=== PATIENT | male | born 1945 | race Caucasian/White ===

== ENCOUNTER → 2020-04-11 10:43 | Outpatient (BNVA) | payer MEDICARE, OTHER, SELFPAY | PROVIDERS: Family Provider Family Medicine; PCP Family Medicine; Visit Provider Internal Medicine Cardiovascular Disease | DX: E78.2 Mixed hyperlipidemia (principal) | CPT/HCPCS: 80061; 80076 ==

== ENCOUNTER → 2020-06-12 08:59 | Outpatient (BNVA) | payer MEDICARE, OTHER, SELFPAY | PROVIDERS: Family Provider Family Medicine; PCP Family Medicine; Visit Provider Internal Medicine Cardiovascular Disease | DX: E78.2 Mixed hyperlipidemia (principal); I10 Essential (primary) hypertension; I42.9 Cardiomyopathy, unspecified | CPT/HCPCS: 80061; 80076 ==

== ENCOUNTER → 2021-04-11 10:31 | Outpatient (BNVA) | payer MEDICARE, OTHER, SELFPAY | PROVIDERS: Family Provider Family Medicine; PCP Nurse Practitioner; Visit Provider Internal Medicine Cardiovascular Disease | DX: E78.2 Mixed hyperlipidemia (principal); E78.5 Hyperlipidemia, unspecified; R06.02 Shortness of breath | CPT/HCPCS: 80048; 80061; 80076 ==

== ENCOUNTER 2021-09-14 12:54 | Emergency (ER) | payer MEDICARE, OTHER, SELFPAY ==
--- NOTE | 2021-09-14 13:01 | ECG_ITS ---
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 Measurements Intervals [place] Rate: 121 P: GA: QRS: -7 QRSD: 105 T: -51 QT: 325 QTc: 463 Interpretive Statements ATRIAL FIBRILLATION WITH RAPID VENTRICULAR RESPONSE WITH ABERRANT CONDUCTION OR VENTRICULAR PREMATURE COMPLEXES INFERIOR MYOCARDIAL INFARCTION , OF INDETERMINATE AGE [40+ ms Q WAVE AND/OR ST/T ABNORMALITY IN II/aVF] No previous ECG available for comparison Electronically Signed On 09-14-2021 23:26:40 CDT by Suki Arreola M.D. [id number]
--- NOTE | 2021-09-14 13:01 | CTR_ITS ---
PROCEDURE INFORMATION: Exam: CT Head Without Contrast Exam date and time: 09/14/2021 12:56 PM Age: 76 years old Clinical indication: Altered mental status/memory loss and weakness, facial; Additional info: Symptoms of acute stroke TECHNIQUE: Imaging protocol: Computed tomography of the head without contrast. Radiation optimization: All CT scans at this facility use at least one of these dose optimization techniques: automated exposure control; mA and/or kV adjustment per patient size (includes targeted exams where dose is matched to clinical indication); or iterative reconstruction. Other technique: STROKE PROTOCOL was implemented. COMPARISON: No relevant prior studies available. RADIATION DOSE METRICS: Total DLP (mGy-cm): 829.79 FINDINGS: Brain: Normal. No hemorrhage. Unremarkable white matter. No mass effect. Cerebral ventricles: No ventriculomegaly. Paranasal sinuses: Visualized sinuses are unremarkable. No fluid levels. Mastoid air cells: Visualized mastoid air cells are well aerated. Bones/joints: Unremarkable. No acute fracture. Soft tissues: Unremarkable. CT/CT head wo con* [id number] IMPRESSION: No acute intracranial abnormality. ASSESSMENT: ASPECTS ([facility] Stroke Program Early CT Score) is 10.
--- NOTE | 2021-09-14 13:09 | ED_ITS ---
HPI - Neuro Symptoms/Deficit General: Chief Complaint: Neuro Symptoms/Deficit Stated Complaint: STROKE ALERT Time Seen by Provider: 09/14/21 13:00 Source: patient and EMS Mode of arrival: EMS Limitations: no limitations History of Present Illness: 76-year-old male brought in by EMS from [facility] last known well was 1225 he had sudden onset of unresponsiveness for a time he became more responsive but he is completely flaccid on the left side he has left-sided neglect and reiterates that there is nothing wrong with him when asked various questions. NIH score of 16. at the bedside denies any recent trauma states he is not on any anticoagulants. Initial EKG does show atrial fibrillation. Onset (ago): minute(s) Time: 12:54 Last Observed Normal: 12:25 Location: left face, left arm, left leg and ataxia History of same: No Severity: severe Quality: weak and numb Relieving factors: none Exacerbating factors: none Context: sudden onset Associated symptoms: Deny cough, fevers/chills, anorexia, seizures, short of breath, tingling or weakness Treatments Prior to Arrival: none Review of Systems General: Reports: ROS unobtainable due to medical condition PFS ED PFSH: Medical History Arrhythmia Cardiomyopathy Glaucoma Hyperlipidemia Hypertension Vasectomy evaluation Ventricular arrhythmia Surgical History H/O cataract extraction Family History Mother CAD (coronary artery disease) Brother CAD (coronary artery disease) Congenital heart disease Lung disease Denies family history of Diabetes Clotting disorder Dementia Chronic kidney disease (CKD) Suicide Anesthesia complication Bleeding disorder Cancer Stroke Social History Smoking and tobacco status: never smoked Alcohol intake: never NIH stroke score NIHSS: Level Of Consciousness - 1a: 1 Level Of Consciousness Questions - 1b: Both Correct Level Of Consciousness Commands - 1c: Both Correct Best Gaze - 2: Forced Deviation Visual Teresa - 3: Partial Hemianopia Facial Palsy - 4: Partial Paralysis Motor Arm Right - 5: No Drift Motor Arm Left - 5: No Effort Against [place] Motor Leg Right - 6: No Drift Motor Leg Left - 6: No Effort Against [place] Limb Ataxia - 7: Present In Two Limbs Sensory - 8: Severe To Total Loss Best Language - 9: No Aphasia Dysarthia - 10: Normal Extinction And Inattention - 11: 0 Score: Total Score: 16 Physical Exam Const: GENERAL APPEARANCE: comfortable HENMT: COMMON NORMALS: normocephalic, atraumatic and hearing grossly normal bilaterally HEAD & SCALP: normocephalic and atraumatic Eye: OTHER: Forced right gaze with left-sided neglect Neck/C-Spine: COMMON NORMALS: no JVD Resp: COMMON NORMALS: normal respiratory effort, No retractions, No use of accessory muscles and clear to auscultation bilaterally AUSCULTATION: clear to auscultation bilaterally Cardio: COMMON NORMALS: no JVD, regular rate, regular rhythm and No murmurs present (Cardio) RATE: regular rate RHYTHM: regular rhythm GI: COMMON NORMALS: Soft to palpation and No hepatosplenomegaly present AUSCULTATION: Yes normoactive bowel sounds PALPATION: Yes Soft to palpation, No Tenderness to palpation present (GI), No Guarding due to palpation present (GI) and Yes No hepatosplenomegaly present Extremity: COMMON NORMALS: normal to inspection, capillary refill normal, no clubbing, cyanosis or edema, no calf tenderness and no pedal edema Neuro: OTHER: See NIH score Skin: COMMON NORMALS: no rashes or lesions noted GENERAL SKIN EXAM: no rashes or lesions noted Course Vital Signs: Vital signs: Vital Signs Temperature 98.1 F 09/14/21 13:40 Pulse Rate 78 09/14/21 13:40 Respiratory Rate 16 09/14/21 13:40 Blood Pressure 143/72 09/14/21 13:40 Pulse Oximetry 97 09/14/21 13:40 MDM - Neuro Symptoms/Deficit Medical Decision Making Discussed with [facility] on-call neurology they are covering for stroke call today. Patient has an NIH score of 16 with left-sided neglect and forced right deviation of his gaze. He is not on any anticoagulants no recent trauma no recent surgeries per the . Discussed risks and benefits with the she wishes to proceed. Discussed with [facility] on-call neurology they have reviewed the CT noncontrast and suspect embolism in the M1 segment. There is no evidence of bleed. They recommend giving the tPA once patient is consented. has agreed tPA started will transfer emergently via [facility] to [facility] ER to ER. Medical Records I reviewed the patient's medical records. Lab Data I reviewed the patient's lab results. : 09/14/21 13:20 09/14/21 13:[address] 09/14/21 13:01 IMPRESSION: No acute intracranial abnormality. ASSESSMENT: ASPECTS ([facility] Stroke Program Early CT Score) is 10. Laboratory Results WBC 9.8 10^3/uL (4.0-10.0) 09/14/21 13:20 RBC 4.79 10^6/uL (4.1-5.3) 09/14/21 13:20 Hgb 14.8 g/dL (11.7-16.6) 09/14/21 13:20 Hct 44.9 % (42.0-52.0) 09/14/21 13:20 MCV 93.7 fl (80-94) 09/14/21 13:20 MCH 30.9 pg (28.0-34.0) 09/14/21 13:20 MCHC 33.0 g/dL (30.0-36.0) 09/14/21 13:20 RDW 12.9 % (12.1-15.1) 09/14/21 13:20 Plt Count 200 10^3/cmm (130-400) 09/14/21 13:20 MPV 10.6 fL (7.4-10.4) H 09/14/21 13:20 Neut % (Auto) 58.3 % 09/14/21 13:20 Lymph % (Auto) 28.2 % 09/14/21 13:20 [place] % (Auto) 12.1 % 09/14/21 13:20 Eos % (Auto) 0.6 % 09/14/21 13:20 Baso % (Auto) 0.6 % 09/14/21 13:20 Neut # (Auto) 5.71 10^3/uL (1.8-7.7) 09/14/21 13:20 Lymph # (Auto) 2.8 10^3/uL (0.8-4.8) 09/14/21 13:20 [place] # (Auto) 1.2 10^3/uL (0.2-0.9) H 09/14/21 13:20 Eos # (Auto) 0.1 10^3/uL (0.0-0.8) 09/14/21 13:20 Baso # (Auto) 0.1 10^3/uL (0.0-0.1) 09/14/21 13:20 Nucleated RBC % (auto) 0 % 09/14/21 13:20 Nucleated RBCs # 0.0 /100WBC 09/14/21 13:20 PT 13.50 SECONDS (12.1-14.9) 09/14/21 13:20 INR 1.00 (0.8-1.2) 09/14/21 13:20 APTT 30.2 SECONDS (23.9-36.7) 09/14/21 13:20 Sodium 135 mmol/L (136-145) L 09/14/21 13:20 Potassium 4.3 mmol/L (3.5-5.1) 09/14/21 13:20 Chloride 101 mmol/L (98-107) 09/14/21 13:20 Carbon Dioxide 23 mmol/L (22-29) 09/14/21 13:20 Anion Gap 15.3 (5-19) 09/14/21 13:20 BUN 12 mg/dL (8-23) 09/14/21 13:20 Creatinine 0.9 mg/dL (0.7-1.2) 09/14/21 13:20 GFR Calculation Not Reportable 09/14/21 13:20 Glucose 121 mg/dL (65-115) H 09/14/21 13:20 POC Glucose 108 mg/dL (70-110) 09/14/21 13:09 Calculated Osmolality 281 mOsm/kg (285-295) L 09/14/21 13:20 Calcium 8.4 mg/dL (8.5-10.5) L 09/14/21 13:20 Total Bilirubin 1.0 mg/dL (0.15-1.2) 09/14/21 13:20 AST 27 U/L (0-40) 09/14/21 13:20 ALT 24 U/L (0-41) 09/14/21 13:20 Alkaline Phosphatase 63 IU/L (40-130) 09/14/21 13:20 Total Protein 7.2 g/dL (6.6-8.7) 09/14/21 13:20 Albumin 3.8 g/dL (3.5-5.2) 09/14/21 13:20 Globulin 3.4 g/dL (1.3-4.6) 09/14/21 13:20 Urine Color Yellow (Yellow) 09/14/21 13:36 Urine Appearance Clear (CLEAR) 09/14/21 13:36 Urine pH 6.5 (5-7) 09/14/21 13:36 Ur Specific [place] 1.015 (1.005-1.030) 09/14/21 13:36 Urine Protein Neg (Negative) 09/14/21 13:36 Urine Glucose (UA) Norm (Normal) 09/14/21 13:36 Urine Ketones 1+ (Negative) H 09/14/21 13:36 Urine Blood 2+ (Negative) H 09/14/21 13:36 Urine Nitrate Negative (Negative) 09/14/21 13:36 Urine Bilirubin 1+ (Negative) H 09/14/21 13:36 Urine Urobilinogen Norm mg/dL (Negative) 09/14/21 13:36 Ur Leukocyte Esterase Negative (Negative) 09/14/21 13:36 Urine RBC 5-10 /hpf (0-2) H 09/14/21 13:36 Urine WBC 0-4 /hpf (0-5) H 09/14/21 13:36 Ur Squamous Epith Cells 0-4 /hpf (0-5) H 09/14/21 13:36 Amorphous Sediment Not Reportable 09/14/21 13:36 Urine Bacteria Trace /hpf (NONE) 09/14/21 13:36 Urine Mucus 1+ /hpf 09/14/21 13:36 Urine Opiates Screen Negative ng/mL (Negative) 09/14/21 13:36 Ur Barbiturates Screen Negative ng/mL (Negative) 09/14/21 13:36 Ur Phencyclidine Scrn Negative ng/mL (Negative) 09/14/21 13:36 Ur Amphetamines Screen Negative ng/mL (Negative) 09/14/21 13:36 U Benzodiazepines Scrn Negative ng/mL (Negative) 09/14/21 13:36 Urine Cocaine Screen Negative ng/mL (Negative) 09/14/21 13:36 U Marijuana (THC) Screen Negative ng/mL (Negative) 09/14/21 13:36 Critical Care Time Critical Care Time: Critical Care Time: Yes Total Critical Care Time: 60 Attestation: The high probability of a clinically significant, sudden or life threatening deterioration of the patient's neurologic system(s) required my full and direct attention, intervention and personal management. The critical care time is as shown. This time is in addition to time spent performing any reported procedures but includes the following: [x] Data and vital sign review and interpretation [x] Patient assessment, examination and intervention [x] Documentation [x] Medication orders and management Discharge Plan Discharge Patient Disposition: Transfer to ED Clinical Impression: Cerebrovascular accident Condition: Stable Prescriptions: No Action magnesium oxide 400 mg magnesium tablet 400 mg PO BID 0RF dorzolamide (PF) 2 % drops 1 drop ophthalmic (eye) TID 0RF latanoprost 0.005 % drops 1 drop ophthalmic (eye) DAILY 0RF metoprolol succinate 50 mg tablet extended release 24 hr 50 mg PO DAILY Qty: 90 3RF Multi-Daily Tablet 1 tab PO DAILY 0RF pravastatin 40 mg tablet 40 mg PO DAILY 0RF lisinopril 10 mg tablet 10 mg PO DAILY 0RF Referrals: Frances Guillen APN [Primary Care Provider] - Sridhar King Jr, MD [Staff Physician] - Coding Level of Care Code ED Be[employer] for Jeff Fwd Exam Comprehensive
[2021-09-14 13:31] LABS: Basophils # 0.1 10^3/uL (0.0-0.1); Basophils % 0.6 %; Eosinophils # 0.1 10^3/uL (0.0-0.8); Eosinophils % 0.6 %; Hematocrit 44.9 % (42.0-52.0); Hemoglobin 14.8 g/dL (11.7-16.6); Lymphocytes # 2.8 10^3/uL (0.8-4.8); Lymphocytes % 28.2 %; Mean Corpuscular Hemoglobin 30.9 pg (28.0-34.0); Mean Corpuscular Volume 93.7 fl (80-94); Mean Platelet Volume 10.6 fL (7.4-10.4); Monocytes # 1.2 10^3/uL (0.2-0.9); Monocytes % 12.1 %; Neutrophils # 5.71 10^3/uL (1.8-7.7); Neutrophils % 58.3 %; Nucleated Red Blood Cells % 0 %; Platelet Count 200 10^3/cmm (130-400); Red Blood Count 4.79 10^6/uL (4.1-5.3); Red Cell Distribution Width 12.9 % (12.1-15.1); White Blood Count 9.8 10^3/uL (4.0-10.0)
--- NOTE | 2021-09-14 13:38 | PC.NURSE ---
Called [facility] spoke with ER, states this RN can't give report as they have not officially accepted at this time. given number to call back in 10 minutes, .
[2021-09-14 13:40] VITALS: BP 143/72; PULSE 78; RESP 16; TEMP 36.7; O2SAT 97; BMI 27.3
[2021-09-14 13:54] LABS: Partial Thromboplastin Time 30.2 SECONDS (23.9-36.7)
[2021-09-14 13:58] LABS: Alanine Aminotransferase 24 U/L (0-41); Albumin Level 3.8 g/dL (3.5-5.2); Alkaline Phosphatase 63 IU/L (40-130); Anion Gap 15.3 (5-19); Aspartate Amino Transferase 27 U/L (0-40); Blood Urea Nitrogen 12 mg/dL (8-23); Calcium 8.4 mg/dL (8.5-10.5); Carbon Dioxide 23 mmol/L (22-29); Chloride 101 mmol/L (98-107); Creatinine Clr Calc Pharmacy 72.7889; Globulin 3.4 g/dL (1.3-4.6); Glucose 121 mg/dL (65-115); Osmolality Calculated 281 mOsm/kg (285-295); Potassium 4.3 mmol/L (3.5-5.1); Sodium 135 mmol/L (136-145); Total Protein 7.2 g/dL (6.6-8.7)
--- NOTE | 2021-09-14 14:00 | PC.NURSE ---
Patient's Yina states she needs to speak with son or daughter in law before okaying the flight to [facility], due to concerns for transportation for her. Patient's states if we speak with them before she does, and they give consent we can then fly patient to [facility].
[2021-09-14] MEDS: dilTIAZem 5 mg/mL SDV 5 mL 10 MG IVP (14:17)
--- NOTE | 2021-09-14 14:27 | PC.NURSE ---
Spoke with she has left the building, after discussion with Dr. Anne about the severity of the situation, Yina states she wants to speak with a family member about a ride before allowing him to fly to [place]. She is still okay with verbal consent from family if we are able to reach them before she is. [employer] crew is in ER, spoke with [facility] and they stated it was okay to fly. 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
[2021-09-14 14:50] LABS: Add Urine Microscopic? YES; Amphetamines Screen Urine Negative (Negative); Bacteria Urine TRACE /hpf; Barbiturates Screen Urine Negative (Negative); Benzodiazepines Screen Urine Negative (Negative); Bilirubin Urine 1+ (Negative); Blood Urine 2+ (Negative); Cocaine Screen Urine Negative (Negative); Glucose Urine UA Norm (Normal); Ketones Urine 1+ (Negative); Leukocyte Esterase Urine Negative (Negative); Nitrate Urine Negative (Negative); Opiate Screen Urine Negative (Negative); PCP Screen Urine Negative (Negative); Protein Urine Neg (Negative); Specific Gravity, Urine 1.015 (1.005-1.030); Squamous Epithelial Cell Urine 0-4 /hpf (0-5); THC Screen Urine Negative (Negative); Urine Appearance Clear (CLEAR); Urine Color Yellow (Yellow); Urobilinogen Urine Norm (Negative); WBC Urine 0-4 /hpf (0-5); pH Urine 6.5 (5-7)
[2021-09-14 14:51] LABS: Mucus Urine 1+ /hpf
--- NOTE | 2021-09-14 15:58 | PC.NURSE ---
See scanned in documentation.
[2021-09-15 08:25] LABS: Glucose Point of Care 108 mg/dL (70-110)
== END 2021-09-14 15:00 ==
PROVIDERS: Emergency Provider Family Medicine; PCP Nurse Practitioner
DX: I63.9 Cerebral infarction, unspecified (principal); G81.91 Hemiplegia, unspecified affecting right dominant side; R29.716 NIHSS score 16
CPT/HCPCS: 36416; 70450; 80053; 80306; 81001; 82962; 85025; 85610; 85730; 93005; 96374; 96375; 99285; J2997; J3490

== ENCOUNTER → 2021-12-18 14:58 | Outpatient (BNVA) | payer MEDICARE, OTHER, SELFPAY | PROVIDERS: PCP Nurse Practitioner Family; Visit Provider Internal Medicine Cardiovascular Disease | DX: I48.91 Unspecified atrial fibrillation (principal); I69.354 Hemiplegia and hemiparesis following cerebral infarction affecting left non-dominant side; I49.9 Cardiac arrhythmia, unspecified; I10 Essential (primary) hypertension; E78.5 Hyperlipidemia, unspecified | CPT/HCPCS: 99213; 99214 ==

== ENCOUNTER → 2022-01-02 10:51 | Outpatient (BNVA) | payer MEDICARE, OTHER, SELFPAY | PROVIDERS: PCP Nurse Practitioner Family; Referring Provider Nurse Practitioner Family; Visit Provider Nurse Practitioner | DX: I69.391 Dysphagia following cerebral infarction (principal); I48.91 Unspecified atrial fibrillation; G47.30 Sleep apnea, unspecified; Z79.01 Long term (current) use of anticoagulants | CPT/HCPCS: 99204 ==

== ENCOUNTER 2022-01-03 22:40 | Inpatient (IN) | payer MEDICARE, OTHER, SELFPAY ==
--- NOTE | 2022-01-03 22:44 | ED_ITS ---
HPI - SOB/Dyspnea General: Chief Complaint: Arrhythmia/Palpitations Stated Complaint: SOB Time Seen by Provider: 01/03/22 22:43 Limitations: physical limitation (Prior stroke) and other (Acuity of condition) History of Present Illness: HPI Narrative: Mr. Dasilva is a 76-year-old gentleman with significant past medical history of cardiomyopathy, hypertension, hyperlipidemia, atrial fibrillation, and recent hospitalization prolonged for stroke, chronic anticoagulation with Eliquis who presents to the emergency department due to A. fib with RVR and hypotension. Per EMS report patient had onset of chest pain and shortness of breath at rest and EMS was activated. They found patient be hypotensive into the 80s with heart rates variable 160-180. They attempted adenosine 6 mg and then 12 mg without improvement. Upon arrival patient is moderately ill-appearing and similar vitally. Onset (ago): minute(s) Timing: constant Severity: severe Known history of: congestive heart failure and other Review of Systems General: Reports: ROS unobtainable due to medical condition PFSH ED PFSH: Medical History Afib Arrhythmia Cardiomyopathy CVA (cerebral vascular accident) Glaucoma Hyperlipidemia Hypertension Vasectomy evaluation Ventricular arrhythmia Surgical History H/O cataract extraction Family History Mother CAD (coronary artery disease) Brother CAD (coronary artery disease) Congenital heart disease Lung disease Denies family history of Diabetes Clotting disorder Dementia Chronic kidney disease (CKD) Suicide Anesthesia complication Bleeding disorder Cancer Stroke Social History Smoking and tobacco status: never smoked Alcohol intake: never Physical Exam Const: COMMON NORMALS: alert GENERAL APPEARANCE: ill appearing HENMT: COMMON NORMALS: normocephalic and atraumatic HEAD & SCALP: normocephalic and atraumatic THROAT: posterior oropharynx normal Eye: COMMON NORMALS: conjunctivae normal CONJUNCTIVA: Yes conjunctivae normal SCLERA: sclerae normal Neck/C-Spine: COMMON NORMALS: supple GENERAL: Yes trachea midline Resp: COMMON NORMALS: clear to auscultation bilaterally EFFORT & INSPECTION: Yes tachypneic AUSCULTATION: clear to auscultation bilaterally Cardio: RATE: tachycardic RHYTHM: abnormal rhythm irregularly irregular OTHER: Cool extremities with delayed capillary refill GI: COMMON NORMALS: Soft to palpation PALPATION: Yes Soft to palpation and No Tenderness to palpation present (GI) Extremity: GENERAL: Yes normal exam except as noted and No edema Neuro: SENSORIUM/ORIENTATION: Yes alert and No Orientation impaired OTHER: Baseline neurologic deficits including weakness, mentation surprisingly preserved Procedures Arterial Line Time Out Performed: Yes Size (Gauge): 20 Technique Used: guide wire technique Post-Procedure: line sutured into place and dry sterile dressing placed Patient Tolerated Procedure: well Complications: none Site: right and radial Course ED course: - Patient was seen and evaluated by me at bedside - Patient placed on cardiac monitors, IV access obtained - Initial evaluation notable for exam as above. Patient initially tachycardic to 170?180 with a regular rhythm, EKG confirms atrial fibrillation with rapid ventricular response. Patient blood pressure initially obtained and borderline 90-95 systolic. Given blood pressure and patient adequate mentation I elected to attempt medications for better rate control to improve cardiac output. Cardizem ordered with delayed response however some improvement in heart rate though not optimal control with return to heart rates in the 140?160 range. Subsequently I ordered esmolol with bolus which improved heart rate further however patient became increasingly hypotensive despite fluid bolus administration. At that point I switched to amiodarone with bolus over 10 minutes followed by drip and discontinued esmolol. Phenylephrine ordered for blood pressure support. - [id number] echocardiogram ejection fraction appears significantly reduced, estimated 10 to 20% EF. Unable to visualize IVC due to bowel gas. - Labs and xrays personally interpreted by me - Labs notable for no leukocytosis, hemoglobin normal. Metabolic panel with evidence of JW and metabolic stress. Transaminitis which may be secondary to hypoperfusion of liver. BNP is markedly elevated also giving the possibility of a passive congestive hepatopathy to explain transaminitis. Initial troponin elevated with no recent for comparison. - Urinalysis concerning for urinary tract infection at which point antibiotics ordered. I believe that the patient has multiple etiologies of severe shock including sepsis and cardiogenic. Patient received greater than 30 cc/kg IV fluids accounting for EMS administered 1 L. - Imaging notable for chest x-ray with low lung volumes and mild cardiomegaly. No pneumothorax or lobar consolidation per my interpretation. Given patient's c urrent clinical status I do not feel that he is stable enough for additional advanced imaging. - Given variability of cuff pressure measurements I placed an arterial line after consent obtained from - Upon serial reexamination after treatment the patient was mildly improved/stabilized the patient remains critically ill - Discussed case with cardiology who recommended digoxin for rate control. - Based on patient history, evaluation, and testing as interpreted the most likely cause of the patient's condition is acute decompensation of heart failure, likely cardiogenic shock, atrial fibrillation with rapid ventricular response. - The results of ED evaluation were discussed with the patient including plan for admission due to requirement for level of care not available if discharged to prevent significant worsening/deterioration. - Admitting service was contacted and Dr Cage with the hospitalist service agreed to admit the patient - Patient was admitted in critical condition Note: Click bubbles or prepopulated tran in note writing are used for assistance with data collection and billing and are inherently more limited than narrative and other text portions of this note. Please use narrative for additional clinical history and defer to narrative/free test for any case of contradictory information. If information appears in only free text or click bubble it should be considered present or absent as reported. Please contact note marine underwriter for clarifications of clinical information or contradictory information. MDM is a brief summary, contradictory or erroneous seeming information should be clarified and full note should be reviewed. Vital Signs: Vital signs: Vital Signs Temperature 97.0 F L 01/03/22 22:48 Pulse Rate 114 H 01/03/22 23:33 Respiratory Rate 22 H 01/03/22 23:33 Blood Pressure 72/60 01/03/22 23:33 Pulse Oximetry 97 01/03/22 23:33 Oxygen Delivery Me thod 01/03/22 23:33 Oxygen Flow Rate 2 01/03/22 23:33 MDM - SOB/Dyspnea Medical Decision Making 76-year-old gentleman with complex past medical history including recent stroke, cardiomyopathy, atrial fibrillation presenting with atrial fibrillation with RVR. Patient with borderline blood pressure and attempts at rate control unfortunately were challenging complicated by further hypotension. Patient initiated on peripheral vasopressor. Patient appears to have cardiogenic shock and subsequently, upon results of urinalysis, also a component of septic shock secondary to urosepsis. Admitted to ICU in critical condition. Medical Records I reviewed the patient's medical records. Lab Data I reviewed the patient's lab results. : 01/03/22 22:57 01/03/22 22:57 Labs/Radiology: Radiology Impressions Chest X-Ray 01/03/22 22:52 IMPRESSION: 1. Low lung volumes and mild bronchovascular crowding. 2. Mild cardiomegaly on portable view. Laboratory Results WBC 8.3 10^3/uL (4.0-10.0) 01/03/22 22:57 RBC 5.02 10^6/uL (4.1-5.3) 01/03/22 22:57 Hgb 14.9 g/dL (11.7-16.6) 01/03/22 22:57 Hct 45.2 % (42.0-52.0) 01/03/22 22:57 MCV 90.0 fl (80-94) 01/03/22 22:57 MCH 29.7 pg (28.0-34.0) 01/03/22 22:57 MCHC 33.0 g/dL (30.0-36.0) 01/03/22 22:57 RDW 15.8 % (12.1-15.1) H 01/03/22 22:57 Plt Count 150 10^3/cmm (130-400) 01/03/22 22:57 MPV 13.3 fL (7.4-10.4) H 01/03/22 22:57 Neut % (Auto) 79.7 % 01/03/22 22:57 Lymph % (Auto) 13.7 % 01/03/22 22:57 [place] % (Auto) 6.1 % 01/03/22 22:57 Eos % (Auto) 0.0 % 01/03/22 22:57 Baso % (Auto) 0.1 % 01/03/22 22:57 Neut # (Auto) 6.63 10^3/uL (1.8-7.7) 01/03/22 22:57 Lymph # (Auto) 1.1 10^3/uL (0.8-4.8) 01/03/22 22:57 [place] # (Auto) 0.5 10^3/uL (0.2-0.9) 01/03/22 22:57 Eos # (Auto) 0.0 10^3/uL (0.0-0.8) 01/03/22 22:57 Baso # (Auto) 0.0 10^3/uL (0.0-0.1) 01/03/22 22:57 Nucleated RBC % (auto) 0.4 % 01/03/22 22:57 Nucleated RBCs # 0.0 /100WBC 01/03/22 22:57 Specimen Type Arterial 01/04/22 01:45 Sample Site Radial, left 01/04/22 01:45 ABG pH 7.35 (7.35-7.45) 01/04/22 01:45 ABG pCO2 15.0 mmHg (35-45) L* 01/04/22 01:45 ABG pO2 116.0 mmHg (80.0-100.0) H 01/04/22 01:45 ABG HCO3 8.2 mmol/L (22-26) L 01/04/22 01:45 ABG Base Excess -14.2 mmol/L (-2.0-2.0) L 01/04/22 01:45 Yuriy Test Pos 01/04/22 01:45 Hematocrit 47.2 % (42-52) 01/04/22 01:45 O2 Delivery Device Nc 01/04/22 01:45 O2 Liters/Min 4.0 % 01/04/22 01:45 Estimator Printing Plate Making ID [place] 01/04/22 01:45 Sodium 136 mmol/L (136-145) 01/03/22 22:57 Potassium 4.9 mmol/L (3.5-5.1) 01/03/22 22:57 Chloride 100 mmol/L (98-107) 01/03/22 22:57 Carbon Dioxide 18 mmol/L (22-29) L 01/03/22 22:57 Anion Gap 22.9 (5-19) H 01/03/22 22:57 BUN 55 mg/dL (8-23) H 01/03/22 22:57 Creatinine 1.6 mg/dL (0.7-1.2) H 01/03/22 22:57 GFR Calculation Not Reportable 01/03/22 22:57 Glucose 115 mg/dL (65-115) 01/03/22 22:57 Calculated Osmolality 298 mOsm/kg (285-295) H 01/03/22 22:57 Lactic Acid 3.6 mmol/L (0.5-2.2) H 01/03/22 22:57 Calcium 9.3 mg/dL (8.5-10.5) 01/03/22 22:57 Magnesium 2.2 mg/dL (1.7-2.3) 01/03/22 22:57 Total Bilirubin 1.4 mg/dL (0.15-1.2) H 01/03/22 22:57 AST 112 U/L (0-40) H 01/03/22 22:57 ALT 124 U/L (0-41) H 01/03/22 22:57 Alkaline Phosphatase 150 IU/L (40-130) H 01/03/22 22:57 Troponin T Baseline 183 ng/L (0-15) H* 01/03/22 22:57 Troponin T 120 Minute 204.0 ng/L (0-15) H 01/04/22 01:13 Delta Troponin T 21.0 ABS# (0-10) H* 01/04/22 01:13 NT-Pro-B Natriuret Pep 70201 pg/mL (0-450) H 01/03/22 22:57 Total Protein 5.7 g/dL (6.6-8.7) L 01/03/22 22:57 Albumin 3.3 g/dL (3.5-5.2) L 01/03/22 22:57 Globulin 2.4 g/dL (1.3-4.6) 01/03/22 22:57 TSH 3.95 uIU/mL (0.27-4.20) 01/03/22 22:57 Urine Color Latisha (Yellow) 01/04/22 01:22 Urine Appearance Cloudy (CLEAR) 01/04/22 01:22 Urine pH 6 (5-7) 01/04/22 01:22 Ur Specific [place] 1.030 (1.005-1.030) 01/04/22 01:22 Urine Protein Trace (Negative) 01/04/22 01:22 Urine Glucose (UA) Norm (Normal) 01/04/22 01:22 Urine Ketones Negative (Negative) 01/04/22 01:22 Urine Blood Trace (Negative) H 01/04/22 01:22 Urine Nitrate Negative (Negative) 01/04/22 01:22 Urine Bilirubin Neg (Negative) 01/04/22 01:22 Urine Urobilinogen 1 mg/dL (Negative) H 01/04/22 01:22 Ur Leukocyte Esterase 2+ (Negative) H 01/04/22 01:22 Urine RBC 0-4 /hpf (0-2) H 01/04/22 01:22 Urine WBC >100 /hpf (0-5) H 01/04/22 01:22 Ur Squamous Epith Cells 0-4 /hpf (0-5) H 01/04/22 01:22 Amorphous Sediment Not Reportable 01/04/22 01:22 Urine Bacteria Trace /hpf (NONE) 01/04/22 01:22 Critical Care Time Critical Care Time: Critical Care Time: Yes Total Critical Care Time: 140 Attestation: Due to a high probability of clinically significant, possibly life threatening deterioration, the patient required my highest level of attention and preparedness to intervene emergently and I personally spent this critical care time directly and personally managing the patient. This critical care time included obtaining a history; examining the patient; pulse oximetry; ordering and review of laboratory and imaging studies; arranging urgent treatment with development of a management plan; evaluation of patient's response to treatment; frequent reassessment; and, discussions with other providers as applicable. It was exclusive of separately billable procedures. Primary system involved is cardiovascular. Discharge Plan Discharge Patient Disposition: Admitted As Inpatient Admit Provider: Mark Cage Clinical Impression: Cardiogenic shock, Atrial fibrillation with rapid ventricular response, JW (acute kidney injury), Acute UTI, Hx of cardiomyopathy, Severe sepsis Condition: Stable Coding Level of Care Code ED Tanker Driver for g Fwd Exam Comprehensive
[2022-01-03 22:45] VITALS: BMI 20.3
[2022-01-03 22:48] VITALS: PULSE 181; RESP 22; TEMP 36.1; O2SAT 97
--- NOTE | 2022-01-03 22:49 | ECG_ITS ---
[facility] Test Date: 2022-01-03 Pat Name: Nayan Dasilva Department: Room: Gender: Male Annual Campaign Manager: : 1945 Requested By: Amilcar Mcintyre Order Number: [id number] Salas MD: Suki Arreola M.D. Measurements Intervals [place] Rate: 170 P: MT: QRS: 41 QRSD: 113 T: 93 QT: 255 QTc: 429 Interpretive Statements ATRIAL FIBRILLATION WITH RAPID VENTRICULAR RESPONSE WITH ABERRANT CONDUCTION OR VENTRICULAR PREMATURE COMPLEXES SEPTAL MYOCARDIAL INFARCTION , PROBABLY OLD [40+ ms Q WAVE IN V1/V2] ST DEVIATION AND MODERATE T-WAVE ABNORMALITY, CONSIDER ANTEROLATERAL ISCHEMIA [-0.1+ mV T-WAVE IN V3-V6] CRITICAL TEST RESULT Compared to ECG 09/14/2021 14:08:15 T-wave abnormality now present Possible ischemia now present Myocardial infarct finding still present Electronically Signed On 01-04-2022 18:04:22 CDT by Suki Arreola M.D. [id number]
--- NOTE | 2022-01-03 22:52 | XRR_ITS ---
PROCEDURE INFORMATION: Exam: XR Chest Exam date and time: 01/03/2022 11:09 PM Age: 76 years old Clinical indication: Shortness of breath; Patient HX: SOB. Tachycardic and hypotensive on monitor. History of afib. TECHNIQUE: Imaging protocol: Radiologic exam of the chest. Views: 1 view. COMPARISON: No relevant prior studies available. FINDINGS: Lungs: Low lung volume and bronchovascular crowding. Suggestion of slight increased pulmonary vascularity. No consolidation. Pleural spaces: The costophrenic angles are slightly obscured. Cannot exclude trace pleural effusions. No large pleural effusion. No pneumothorax. Heart/Mediastinum: Mild cardiomegaly. Bones/joints: Unremarkable. XR/XR chest 1V portable [id number] IMPRESSION: 1. Low lung volumes and mild bronchovascular crowding. 2. Mild cardiomegaly on portable view.
[2022-01-03 22:56] VITALS: BP 90/58
[2022-01-03] MEDS: dilTIAZem 5 mg/mL SDV 5 mL 20 MG IVP (22:58)
[2022-01-03 23:06] VITALS: BP 91/69; PULSE 141; RESP 23; O2SAT 95
[2022-01-03 23:08] LABS: Basophils % 0.1 %; Hematocrit 45.2 % (42.0-52.0); Hemoglobin 14.9 g/dL (11.7-16.6); Lymphocytes # 1.1 10^3/uL (0.8-4.8); Lymphocytes % 13.7 %; Mean Corpuscular Hemoglobin 29.7 pg (28.0-34.0); Monocytes # 0.5 10^3/uL (0.2-0.9); Monocytes % 6.1 %; Neutrophils # 6.63 10^3/uL (1.8-7.7); Neutrophils % 79.7 %; Nucleated Red Blood Cells % 0.4 %; Platelet Count 150 10^3/cmm (130-400); Red Blood Count 5.02 10^6/uL (4.1-5.3); Red Cell Distribution Width 15.8 % (12.1-15.1); White Blood Count 8.3 10^3/uL (4.0-10.0)
[2022-01-03 23:10] VITALS: BP 90/58; PULSE 130; RESP 21; O2SAT 95
[2022-01-03 23:16] LABS: Mean Platelet Volume 13.3 fL (7.4-10.4)
[2022-01-03 23:33] VITALS: BP 72/60; PULSE 114; RESP 22; O2SAT 97
[2022-01-03 23:40] LABS: Alanine Aminotransferase 124 U/L (0-41); Albumin Level 3.3 g/dL (3.5-5.2); Alkaline Phosphatase 150 IU/L (40-130); Anion Gap 22.9 (5-19); Aspartate Amino Transferase 112 U/L (0-40); Blood Urea Nitrogen 55 mg/dL (8-23); Calcium 9.3 mg/dL (8.5-10.5); Carbon Dioxide 18 mmol/L (22-29); Chloride 100 mmol/L (98-107); Globulin 2.4 g/dL (1.3-4.6); Glucose 115 mg/dL (65-115); Magnesium 2.2 mg/dL (1.7-2.3); NT Pro B Type Natriuretic Pept 33308 pg/mL (0-450); Osmolality Calculated 298 mOsm/kg (285-295); Potassium 4.9 mmol/L (3.5-5.1); Sodium 136 mmol/L (136-145); Thyroid Stimulating Hormone 3.95 uIU/mL (0.27-4.20); Total Bilirubin 1.4 mg/dL (0.15-1.2); Total Protein 5.7 g/dL (6.6-8.7)
[2022-01-03 23:45] LABS: Troponin(5th) Baseline 183 ng/L (0-15)
[2022-01-03] MEDS: esmolol drip 2,500 MG/250 ML PREMIX 23.1 MG (23:45)
[2022-01-04] VITALS (51 sets, daily range): BP systolic 68–127; BP diastolic 32–80; PULSE 92–129; RESP 12–24; TEMP 35.6–36.6; O2SAT 78–100
[2022-01-04] MEDS: phenylephrine inj 25 MG in sodium chloride 0.9% 250 ML 24.24 MG IV (00:02)
[2022-01-04 00:38] LABS: Lactic Sepsis W/Reflex 3.6 mmol/L (0.5-2.2)
--- NOTE | 2022-01-04 00:53 | ECG_ITS ---
[facility] Test Date: 2022-01-03 Pat Name: Nayan Dasilva Department: Room: Gender: Male Eligibility Worker: : 1945 Requested By: Amilcar Mcintyre Order Number: [id number] Salas MD: Suki Arreola M.D. Measurements Intervals [place] Rate: 100 P: [place]: QRS: 51 QRSD: 116 T: 212 QT: 367 QTc: 474 Interpretive Statements ATRIAL FIBRILLATION WITH RAPID VENTRICULAR RESPONSE WITH ABERRANT CONDUCTION OR VENTRICULAR PREMATURE COMPLEXES SEPTAL MYOCARDIAL INFARCTION , PROBABLY OLD [40+ ms Q WAVE IN V1/V2] MODERATE T-WAVE ABNORMALITY, CONSIDER ANTEROLATERAL ISCHEMIA [-0.1+ mV T-WAVE IN V3-V6] Compared to ECG 01/03/2022 22:49:50 No significant changes Electronically Signed On 01-04-2022 18:30:33 CDT by Suki Arreola M.D. [id number]
[2022-01-04] MEDS: FUROsemide 10 mg/mL SDV 4mL 40 MG IVP (00:59)
--- NOTE | 2022-01-04 01:22 | ECG_ITS ---
[facility] Test Date: 2022-01-04 Pat Name: Nayan Dasilva Department: Room: ICU04 Gender: Male Digital Media Specialist: : 1945 Requested By: Mark Cage Order Number: [id number] Salas MD: Suki Arreola M.D. Measurements Intervals [place] Rate: 118 P: -86 UT: 101 QRS: 29 QRSD: 109 T: -88 QT: 337 QTc: 473 Interpretive Statements JUNCTIONAL TACHYCARDIA WITH FREQUENT VENTRICULAR PREMATURE COMPLEXES SEPTAL MYOCARDIAL INFARCTION , PROBABLY OLD [40+ ms Q WAVE IN V1/V2] ST DEVIATION AND MODERATE T-WAVE ABNORMALITY, CONSIDER ANTEROLATERAL ISCHEMIA [-0.1+ mV T-WAVE IN V3-V6] Compared to ECG 01/03/2022 23:21:10 Junctional tachycardia now present Atrial fibrillation no longer present Aberrant conduction of supraventricular beat(s) no longer present Myocardial infarct finding still present T-wave abnormality still present Possible ischemia still present Electronically Signed On 01-04-2022 18:31:27 CDT by Suki Arreola M.D. [id number]
[2022-01-04] MEDS: digoxin 250 mcg/ml INJ 2 mL 500 MCG IVP (01:25)
[2022-01-04 01:37] LABS: Bilirubin Urine Neg (Negative); Blood Urine Trace (Negative); Glucose Urine UA Norm (Normal); Ketones Urine Negative (Negative); Nitrate Urine Negative (Negative); Protein Urine Trace (Negative); Urine Appearance Cloudy (CLEAR); Urine Color Amber (Yellow); pH Urine 6 (5-7)
[2022-01-04 01:38] LABS: Add Urine Culture? Yes; Add Urine Microscopic? YES; Bacteria Urine TRACE /hpf; Leukocyte Esterase Urine 2+ (Negative); RBC Urine 0-4 /hpf (0-2); Squamous Epithelial Cell Urine 0-4 /hpf (0-5); Urobilinogen Urine 1 mg/dL (Negative); WBC Urine >100 /hpf (0-5)
[2022-01-04] MEDS: cefepime 2,000 MG in sodium chloride 0.9% (plus) 50 ML 100 MG IV (01:46)
[2022-01-04 01:56] LABS: ABG PH Result 7.35 (7.35-7.45); Arterial Blood Gas Hematocrit 47.2 % (42-52); Base Excess ABG -14.2 mmol/L (-2.0-2.0); Blood Gas Allen Test Pos; Blood Gas Operator Identificat WALCI; Blood Gas Sample Site Radial, left; Blood Gas Sample Type Arterial; HCO3 ABG 8.2 mmol/L (22-26); Oxygen Device NC
--- NOTE | 2022-01-04 02:00 | PC.NURSE ---
Dr. Farley updated on pressures and meds that were given, order to hold dobutamine at this time.
--- NOTE | 2022-01-04 02:02 | PC.NURSE ---
Dr. Farley at bedside speaking with family about goals of care. 2 hour trop and delta results reported to Dr. Farley at bedside.
[2022-01-04] MEDS: vancomycin 1,500 MG/300 ML PIGGYBACK 200 MG IV (02:05)
[2022-01-04 02:14] LABS: Reflex Lactate Order REFLEX LACTIC ORDERD
--- NOTE | 2022-01-04 02:20 | USR_ITS ---
PROCEDURE INFORMATION: Exam: US Duplex Lower Extremity Veins, Bilateral Exam date and time: 01/04/2022 3:26 AM Age: 76 years old Clinical indication: Abnormal findings; Abnormal lab test; Elevated d-dimer; Additional info: Dvt TECHNIQUE: Imaging protocol: Real-time Duplex ultrasound of the bilateral extremities with 2-D greer scale, color Doppler flow and spectral waveform analysis with image documentation. Complete exam focused on the bilateral lower extremity veins. COMPARISON: No relevant prior studies available. FINDINGS: Right deep veins: The common femoral, femoral, popliteal and visualized calf/posterior tibial veins are patent without thrombus. Normal Doppler waveforms. Normal compressibility and/or augmentation response. Right superficial veins: Saphenofemoral junction is patent without thrombus. Left deep veins: The common femoral, femoral, popliteal and visualized calf/posterior tibial veins are patent without thrombus. Normal Doppler waveforms. Normal compressibility and/or augmentation response. Left superficial veins: Saphenofemoral junction is patent without thrombus. Soft tissues: Unremarkable. US/CV venous duplex [facility] [id number] IMPRESSION: No evidence of deep vein thrombosis.
--- NOTE | 2022-01-04 02:20 | USCV_ITS ---
Nayan Dasilva Age: 76 Gender: M : 1945 Exam Date: 01/04/2022 10:03 Ordering Phys: Mark Cage MD Technologist: Raya Go Exam Location: [facility] Indication: sob, cardiogenic shock BP: 103 / 54 HR: 97 Rhythm: Sinus Technical Quality: Adequate MEASUREMENTS (Male / Female) Normal Values 2D ECHO LV Diastolic Diameter PLAX 6.4 cm 4.2 - 5.9 / 3.9 - 5.3 cm LV Systolic Diameter PLAX 4.8 cm LV Chamber Size 4.5 cm IVS Diastolic Thickness 1.0 cm 0.6 - 1.0 / 0.6 - 0.9 cm IVS Systolic Thickness 1.3 cm LVPW Diastolic Thickness 1.1 cm 0.6 - 1.0 / 0.6 - 0.9 cm LVPW Systolic Thickness 1.5 cm RV Chamber Size 3.5 cm LVOT Diameter 2.0 cm LV Ejection Fraction 2D Teich 48.2 % LV Ejection Fraction MOD 2C 41.4 % LV Ejection Fraction 2C AL 44.0 % LA Diameter 4.0 cm LA Width 4.4 cm LA Height 5.3 cm RA Width 3.6 cm RA Height 4.9 cm Aorta at Sinotubular Diameter 3.1 cm IVC Diameter 1.3 cm M-MODE Aortic Annulus Diameter 3.4 cm LA Ao Ratio MM 1.3 MV E Point Septal Separation 1.3 cm DOPPLER AV Peak Velocity 85.0 cm/s LVOT Peak Velocity 64.0 cm/s AV Area Cont Eq vti 2.6 cm squared AV Area Cont Eq pk 2.4 cm squared MV Area PHT 5.6 cm squared Mitral E to A Ratio 2.8 MV E' Velocity 47.0 cm/s Mitral E to MV E' Ratio 11.9 Mitral E to LV E' Lateral Ratio 13.0 Mitral E to LV E' Septal Ratio 11.0 TR Peak Velocity 176.3 cm/s TR Peak Gradient 12.4 mmHg TR Mean Velocity 138.8 cm/s TR Mean Gradient 8.5 mmHg TR Velocity Time Integral 48.5 cm TV Peak E Velocity 69.0 cm/s Right Atrial Pressure 3.0 mmHg Pulmonary Artery Systolic Pressu 15.4 mmHg PV Peak Velocity 35.3 cm/s RV Acceleration Time 0.2 s RV Ejection Time 0.3 s RV AcT/ET 0.5 FINDINGS Left Ventricle Left ventricle is moderately dilated. LV systolic function is moderate to severely reduced with EF of 35 to 40%. Mild to moderate global hypokinesis. Right Ventricle Normal RV function. Right Atrium Normal in size Left Atrium Left atrial enlargement. Mitral Valve Mitral valve is thickened. Mild mitral regurgitation Aortic Valve Aortic valve is thickened. No significant stenosis. Tricuspid Valve Mild tricuspid regurgitation. Pulmonary artery systolic pressure is normal Pulmonic Valve Not well visualized Pericardium Normal Aorta Normal in size IVC CONCLUSIONS Left ventricle is moderately dilated. LV systolic function is moderate to severely reduced with EF of 35 to 40%. Mild to moderate global hypokinesis. Left atrial enlargement. Mild mitral regurgitation. Compared to prior echocardiogram from 2019, LV systolic function has significantly decreased and is 35 to 40% now. Anil Mayorga MD (Electronically Signed) Final Date: 04 January 2022 14:17 S
--- NOTE | 2022-01-04 02:22 | P.HP_ITS ---
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, status post tPA, at [place], eventually underwent mechanical thrombectomy, recently at [facility] bed, discharged home in September, history of atrial fibrillation on Eliquis, history of hypertension, hyperlipidemia, cardiomyopathy, currently patient is critically ill, in cardiogenic and septic shock, he is alert oriented x3, on 2 L, atrial fibrillation heart rates in the 120s, blood pressure is 110/80, heart line placed by ER physician at home he tells me he can ambulate with a walker, he has not had any falls, does have generalized weakness, recently has been having trouble swallowing, coughing episode, gagging episodes. is at bedside, tells me that he has been more weak recently, complaining of shortness of breath, episodes, having coughing episodes, gagging episodes. He was seen by neurology recently, due to nutritional concerns, they wanted him to be evaluated the emergency room however he declined at that time and this was on 02 January. He denies any chest pain, no history of stenting, no history of carotid artery disease, he denies any shortness of breath, but does have shortness of breath with exertion, no abdominal pain, he does have a shingles outbreak on the right side of his chest, no dysuria, hematuria, his only complaint is neck pain and back pain currently. Denies any fevers, no chills. No cough. The following discussion was made in front of nursing staff, the emergency room, ER physician, patient's , I discussed patient's critical diagnosis, he has an NSTEMI, elevated lactic acid, evidence of multiorgan dysfunction, seems like a combination of cardiogenic shock and septic shock. Also in A. fib with RVR, with hypotension currently on amiodarone, receiving digoxin, receiving epinephrine drip. I discussed his goals of care he tells me he does not want to be caught on, he does not want to have any surgeries. I in detail discussed cardiac catheterization coronary angiogram, he tells me he does not want to have that done. I discussed his goals of care in terms of his CODE STATUS, he ada mantly declines to be resuscitated, he does not want to have CPR he does not want to receive shocking. I discussed the possibility of shocking him out of his A. fib however he declines. I discussed intubation and mechanical ventilation he declines. He tells me he wants to go home, he wants to at home. His at bedside tells me that she cannot take care of him, she wants him to stay in the hospital and she can see him here. She wants to see how he can do with some of the medications we have started. However patient adamant he wants to try to go home, he does not want to be here in the hospital, he tells me he does not want to suffer here in the hospital. He rather be at home. I advised patient that currently he is critically ill, in multiorgan failure and critical shock, he is on artificial life support measures including medications to keep off his blood pressure, keep his heart rate down he is receiving antibiotics. Without these medications, he has a high risk of morbidity and mortality, I do not think he could make it home in his state currently, he would have a high risk of morbidity and mortality in the emergency room, high risk number edema telemetry on the way home and I do not want him to suffer. He is adamant that he wants to go home. I advised him that what I could do for him is try to optimize the medications that he is currently on see if I could improve his cardiogenic shock and septic shock. Do a few more tests. And then I could arrange for hospice to come by and see him and arrange for hospice at home. Then we could try to get him out of the hospital later on this afternoon or even tomorrow on hospice. I feel that in this way I could try to honor his wish of try to getting him home, and minimize his pain and suffering and attempt to honor his wish of going home. Discussed risks and benefits, he voiced understanding, opportunity to ask questions, he voiced understanding, all questions answered, agreed to proceed. agreed, I advised to advise all family members to come and see him if possible Review of Systems Const: Reports: fatigue; Denies: fever(s) Eyes: Denies: change in vision ENMT: Denies: odynophagia Card: Denies: chest pain, palpitations or edema Resp: Reports: dyspnea; Denies: non-productive cough GI: Denies: abdominal pain, nausea or vomiting : Denies: flank pain or difficulty urinating Musc: Reports: neck pain and back pain Skin/Breast: Reports: rash Neuro: Reports: weakness in extremities and difficulty walking Medications/Allergies Home Medications Medication Instructions Recorded Confirmed Last Taken Type dorzolamide (PF) 2 % (PF) eye drops 1 drop ophthalmic (eye) TID 10/12/19 01/02/22 09/14/21 History latanoprost 0.005 % eye drops 1 drop ophthalmic (eye) DAILY 10/12/19 01/02/22 09/14/21 History magnesium oxide 400 mg PO BID 10/12/19 01/02/22 09/14/21 History lisinopril 10 mg tablet 10 mg PO DAILY 09/14/21 01/02/22 09/14/21 History multivitamin 1 tab PO DAILY 09/14/21 01/02/22 09/13/21 History apixaban 5 mg tablet (Eliquis) 5 mg PO BID 12/18/21 01/02/22 Unknown History diltiazem HCl 30 mg tablet 30 mg PO TID 12/18/21 01/02/22 Unknown History megestrol 20 mg tablet 20 mg PO BID 12/18/21 01/02/22 Unknown History metoprolol tartrate 25 mg tablet 25 mg PO BID 12/18/21 01/02/22 Unknown History rosuvastatin 20 mg tablet 20 mg PO DAILY 12/18/21 01/02/22 Unknown History valacyclovir 1 gram tablet 1,000 mg PO TID 12/18/21 01/02/22 Unknown History Allergies Allergy/AdvReac Type Severity Reaction Status Date / Time latex Allergy Unknown unknown Verified 01/02/22 10:55 neomycin Allergy Unknown unknown Verified 01/02/22 10:55 timolol Allergy Unknown unknown Verified 01/02/22 10:55 PFSH Acute PFSH: Medical History Afib Arrhythmia Cardiomyopathy CVA (cerebral vascular accident) Glaucoma Hyperlipidemia Hypertension Vasectomy evaluation Ventricular arrhythmia Surgical History H/O cataract extraction Family History Mother CAD (coronary artery disease) Brother CAD (coronary artery disease) Congenital heart disease Lung disease Denies family history of Diabetes Clotting disorder Dementia Chronic kidney disease (CKD) Suicide Anesthesia complication Bleeding disorder Cancer Stroke Social History Smoking and tobacco status: never smoked Alcohol intake: never Vitals/I&O/Wt Last Vital Signs Temp 97.0 F L 01/03/22 22:48 Pulse 114 H 01/03/22 23:33 Resp 22 H 01/03/22 23:33 BP 72/60 01/03/22 23:33 Pulse Ox 97 01/03/22 23:33 O2 Del Method 01/03/22 23:33 O2 Flow Rate 2 01/03/22 23:33 01/03/22 01/03/22 01/04/22 14:59 22:59 06:59 Intake Total 138.872 / 138.872 Balance 138.872 / 138.872 Weight last 48 hrs Weight 68.039 kg Physical Exam Const: GENERAL APPEARANCE: cooperative, ill appearing and frail appearing NUTRITIONAL APPEARANCE: cachectic ORIENTATION/CONSCIOUSNESS: Yes awake, Yes oriented to person, Yes oriented to place and Yes oriented to time Eye: COMMON NORMALS: EOMs intact bilaterally Chest: COMMONS NORMALS: normal inspection of the chest OTHER: Right sided chest, shingles rash, no active lesions, no active drainage Cardio: COMMON NORMALS: S1 normal heart sound present and S2 normal heart sound present RATE: tachycardic RHYTHM: abnormal rhythm irregularly irr egular GI: COMMON NORMALS: Normal to inspection, nondistended, normoactive bowel sounds present, Soft to palpation and non-tender : OTHER: Todd catheter in place Neuro: COMMON NORMALS: patient oriented x3, CN's II-XII intact bilaterally and moves all extremities OTHER: Has left-sided weakness left upper left lower extremity Urinary Catheter Management: Todd Latex Free: Cath Placed During This Visit: yes Urinary Catheter Date of Insertion: 01/04/22 Urinary Catheter Time of Insertion: 01:00 Data : 01/03/22 22:57 01/03/22 22:57 A&P Assessment and plan (1) Cardiogenic shock: Status: Acute (2) Septic shock: Status: Acute (3) Atrial fibrillation with rapid ventricular response: Status: Acute (4) JW (acute kidney injury): Status: Acute (5) Acute UTI: Status: Acute (6) Aspiration pneumonia: Status: Acute (7) Severe sepsis: Status: Acute (8) NSTEMI (non-ST elevated myocardial infarction): Status: Acute (9) Acute exacerbation of CHF (congestive heart failure): Status: Acute Plan Multifactorial shock -Has components of septic shock, likely components source is UTI and or aspiration pneumonia -Also has components of cardiogenic shock, given elevated BNP, and given elevated troponin Plan -DNR/DNI -Venous ultrasound for DVT, D-dimer, start therapeutic Lovenox, potentially pulmonary embolism, creatinine is 1.6, and hemodynamically unstable for a CT angio at this time -Septic shock, urine culture, blood culture, broad-spectrum metabolic therapy vancomycin, Primaxin -Aspiration precautions, keep n.p.o. -Cardiogenic shock, potentially secondary to underlying coronary artery compromise versus valve rupture -Stat echo, aspirin, statin, therapeutic Lovenox -Cardiology consulted Goals of care -Patient is DNR/DNI -Does not want to be cut on, does not want to have any surgery, does not want to have coronary angiogram -He wants to go home -Plan is to try to get him home on hospice once this can be arranged in the morning, for now he is agreeable to continuing medical intervention but does not want to have aggressive interventions A. fib with RVR -Did not respond to esmolol, Cardizem -Has received 500 of digoxin -Received amiodarone bolus, currently on amiodarone drip -Continue amiodarone drip -Therapeutic Lovenox Systolic CHF exacerbation -Elevated BNP over 30,000 has received Lasix -On exam he does not have pitting edema, no significant crackles on exam -Systolic CHF exacerbation likely secondary to A. fib, cardiogenic shock, potentially valve rupture -Intermittently diuresed JW on CKD -Will diurese as above -On pressors as above -Monitor urine output, monitor renal function -Declines dialysis History of right MCA stroke -Has coughing, gagging episode speech therapy eval -He is ambulatory and a walker -Currently at home Goals of care, wants to go home, agreeable to go home on hospice Attestations Medical Necessity Statement*: Patient requires hospitalization, inpatient, greater than 2 midnights, for multifactorial shock, NSTEMI, acute respiratory failure, acute renal failure Critical Care Time: 60 minutes Coding Level of Care Code Acute [employer] for g Fwd Diagnoses Cardiogenic shock R57.0 Septic shock A41.9; R65.21 Atrial fibrillation with rapid ventricular response I48.91 JW (acute kidney injury) N17.9 Acute UTI N39.0 Aspiration pneumonia J69.0 Severe sepsis A41.9; R65.20 NSTEMI (non-ST elevated myocardial infarction) I21.4 Acute exacerbation of CHF (congestive heart failure) I50.9 Sepsis Event Note Evaluation Current stage of sepsis: severe sepsis Reason for ruling out sepsis: Patient is in septic shock Initial hypotension due to sepsis/infection: MAP < 65 mmHg Persistent hypotension due to sepsis/infection: MAP < 65 mmHg Possible source: pulmonary and genitourinary Focused Exam Vital Signs Temp Pulse Resp BP Pulse Ox O2 Del Method O2 Flow Rate 01/03/22 23:33 114 H 22 H 72/60 97 Nasal Cannula 2 01/03/22 23:10 130 H 21 H 90/58 95 01/03/22 23:06 141 H 23 H 91/69 95 Nasal Cannula 2 01/03/22 22:56 90/58 01/03/22 22:48 97.0 F L 181 H 22 H 97 Nasal Cannula 2 Respiratory exam: Present accessory muscle use Cardiovascular exam: Present tachycardia, irregular rhythm and irregularly irregular Capillary refill: > 3 Seconds Peripheral pulse strength: 1+ Faint Peripheral pulse location: Pedal Skin exam: mottling Date exam was performed: 01/04/22 Time exam was performed: 02:33 Problem List (1) Cardiogenic shock: Status: Acute (2) Septic shock: Status: Acute (3) Atrial fibrillation with rapid ventricular response: Status: Acute (4) JW (acute kidney injury): Status: Acute (5) Acute UTI: Status: Acute (6) Aspiration pneumonia: Status: Acute (7) Severe sepsis: Status: Acute (8) NSTEMI (non-ST elevated myocardial infarction): Status: Acute (9) Acute exacerbation of CHF (congestive heart failure): Status: Acute
--- NOTE | 2022-01-04 03:00 | PC.NURSE ---
Pt. arrived to ICU 4. Pt. is alert and oriented. Right radial arterial line in place with no needs identified at this time. at bedside.
--- NOTE | 2022-01-04 03:02 | US_ITS ---
WS: [id number] RENAL ULTRASOUND HISTORY: uti COMPARISON: None available. TECHNIQUE: 2-D and color Doppler imaging of the kidney submitted. Right kidney: 9.7 cm x 4.1 cm x 5.0 cm. Normal echogenicity with no hydronephrosis or mass. Left kidney: 8.8 cm x 4.5 cm x 3.6 cm. Mild atrophy. No obstruction or mass. Aorta: Normal. Urinary Bladder: Nondistended urinary bladder. Todd catheter in place. US/US renal BI* [id number] IMPRESSION: 1. No renal obstruction or mass. 2. Mild atrophy LEFT kidney.
--- NOTE | 2022-01-04 03:33 | PC.PHAR ---
Pharmacokinetic dosing service Date: 01/04/22 Time: 333 Objective: Patient: Nayan Dasilva Floor: ICU-4 Age: 76 yo Serum creatinine: 1.6 mg/dL Height: 72.0 Inches Weight (kg): 68.039 Diagnosis: Relevant medical/social history: Cultures and sensitivities: Other labs: Assessment: IBW (kg): 77.60 Dosing wt(kg): 68.039 Estimated Creatinine clearance (ml/min): 37.8 CRCL method: Cockcroft and Gault using ibw(default). Drug selected: Vancomycin Loading dose (mg): 0 Vd (liters): 61.2 (factor used: 0.9 L/kg) Yayo (hr-1): 0.036 Half life (hrs): 19.25 Recommended dose: 1250 mg Interval: 24 hrs Infusion time (hrs): 1.5 Predicted peak (mcg/mL): 34.4 Predicted trough (mcg/mL): 15.30 Total body weight is being used for vancomycin dosing. Renal function is stable [ ] /unstable [ ] Recommendations: Give Vancomycin 1250 mg q 24 hrs with an expected Cpeak of 34.4 mcg/ml and an expected Ctrough of 15.30 mcg/ml Renal dosing of other antibiotics (review renal dosing of other medications and list guidelines here): Thank you for the consult, will continue to follow. Signature: Ara Jordan [facility]
[2022-01-04] MEDS: pantoprazole 40 mg SDV IVP (04:32)
[2022-01-04] MEDS: enoxaparin 100 mg/mL Syringe 70 MG SUBCUT (04:36)
[2022-01-04 04:42] LABS: INR 1.66 (0.8-1.2)
[2022-01-04 04:51] LABS: D Dimer 4.95 ug/mIFEU (0-0.59)
[2022-01-04 04:53] LABS: Erythrocyte Sedimentation Rate 3 mm/hr (0-10); Troponin 5 6HR Delta 7.1 ng/L (0-12)
--- NOTE | 2022-01-04 04:53 | ECG_ITS ---
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 Measurements Intervals [place] Rate: 117 P: MT: QRS: 30 QRSD: 120 T: 180 QT: 349 QTc: 488 Interpretive Statements ATRIAL FLUTTER/TACHYCARDIA WITH RAPID VENTRICULAR RESPONSE WITH ABERRANT CONDUCTION OR VENTRICULAR PREMATURE COMPLEXES LEFT VENTRICULAR HYPERTROPHY AND ST-T CHANGE [VOLTAGE CRITERIA PLUS ST/T ABNORMALITY] Compared to ECG 01/03/2022 23:21:10 Left ventricular hypertrophy now present ST (T wave) deviation now present Atrial fibrillation no longer present Myocardial infarct finding no longer present T-wave abnormality no longer present Possible ischemia no longer present Electronically Signed On 01-04-2022 18:32:43 CDT by Suki Arreola M.D. [email or web address]
[2022-01-04 04:54] LABS: Lactic Acid level (Lactate) 5.6 mmol/L (0.5-2.2); Troponin 5 6HR 190.1 ng/L (0-15)
[2022-01-04 04:56] LABS: Procalcitonin 0.14 ng/mL (0-0.5)
[2022-01-04 05:10] LABS: C Reactive Protein 5.9 mg/L (0.0-4.9); Creatine Phosphokinase 46 U/L (39-308)
[2022-01-04 05:18] LABS: Cortisol Random 64.95 ug/dL (2.47-19.5)
[2022-01-04] MEDS: phenylephrine inj 25 MG in sodium chloride 0.9% 250 ML 33.33 MG IV (07:28)
--- NOTE | 2022-01-04 08:54 | PC.PHAR ---
pt verified some of his medications-pt states whatever [facility] filled is what he takes -pt states he is not taking a 81mg aspirin-[facility] states they have a 81mg aspirin on hold from 09/2021-notes are made in the pharmacy comments
--- NOTE | 2022-01-04 08:58 | PC.NURSE ---
PT WAS ALERT AND ORIENTATED FOR THIS NURSE THIS MORNING WHEN DOING MORNING ASSESSMENT. HE WAS SOFT SPOKEN BUT WAS RESPONDING TO VERBAL COMMAND. DR TREADWELL IN TO SEE PT AT 0840 PT WAS MORE LETHARGIC AND RESPONDED MORE TO PAINFUL STIMULI INSTEAD OF VERBAL COMMAND. DOCTOR AND PT AGREED TO PTS PLAN OF CARE. CASE MANAGEMENT TO CALL AND DISCUSS PLAN OF CARE. WILL CONTINUE TO MONITOR.
--- NOTE | 2022-01-04 10:06 | PC.NURSE ---
PTS HERE TO VISIT. PTS APPEARS TO BE UNCOMFORTABLE WITH THE PT GOING HOME ON HOSPICE BUT THAT IS THE PTS WISHES. DR TREADWELL NOTIFIED. DR TREADWELL AND CASE MANAGEMENT HERE TO TALK WITH AND PT.
--- NOTE | 2022-01-04 11:08 | PM.DCS ---
Discharge Providers Date of Admission: 01/04/22 01:56 Date of Discharge: January 04, 2022 Attending Provider at Admission: Mark Cage MD Attending Provider at Discharge: Neeraj Machado MD Primary Care Provider: PRANAV De Leon Diagnoses at Discharge Discharge Diagnosis (1) Cardiogenic shock: Status: Acute (2) Septic shock: Status: Acute (3) Atrial fibrillation with rapid ventricular response: Status: Acute (4) JW (acute kidney injury): Status: Acute (5) Acute UTI: Status: Acute (6) Aspiration pneumonia: Status: Acute (7) Severe sepsis: Status: Acute (8) NSTEMI (non-ST elevated myocardial infarction): Status: Acute (9) Acute exacerbation of CHF (congestive heart failure): Status: Acute Reason for Visit Reason for Visit: SOB Hospital Course Hospital Course Please review detailed H&P done by the admitting physician. 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 fib as well. He was diagnosed with NSTEMI, significant troponin leakage, required vasopressors, art line was placed by the ER physician. When I evaluated him on 01/04 he was titrated off vasopressors. His MAP was ranging between 64-65. He was awake and alert however very lethargic, he does understand that he is very sick, he does carry capacity to make decision, he is not confused or altered or demented. is at the bedside, I had 3 family meetings today, updated his sister, and his son Driss. Driss is going to get in touch with other siblings because they are a and Nayan give me permission to get in touch with Driss. Nayan does not want to go for any coronary angiogram, hemodialysis if needed or any intervention at all, he stating that he should be released to his home as soon as possible, this morning I have discussed with him and his that hospice care would definitely be beneficial in this scenario and he agreed to it. Official echo report is pending however it was being done at the time of my evaluation, I could tell he had diffuse hypokinesia, EF roughly 10 to 15%. We will follow-up with official report. I did tell the family he probably suffered from an ischemic attack and that is why his blood pressure dropped and lactic acid is so high. and Nayan's family are willing to accept his wishes and go home with home hospice. casino cage manager Iram assisted me. Mr. Spicer and his family asked about the prognosis, considering the fact that he most likely had a recent AL, poor ejection fraction, JW, cardiogenic shock he does carry history of V. fib, sudden cardiac arrest, I did tell them he might have hours to a few weeks in terms of his prognosis Physical Exam Narrative: Able to follow commands He is awake and alert however very lethargic Weak cough Is able to answer my questions appropriately Weak and lethargic Able to move his extremities Trace edema of lower extremity Todd catheter in place Abdomen soft Currently he is on room air A. fib RVR heart rate 103-110 Urinary Catheter Management: Todd Latex Free: Cath Placed During This Visit: yes Reason for Continuing Indwelling Catheter: Accurate Measurement of Urinary Output in Critically Ill Patients Urinary Catheter Date of Insertion: 01/04/22 Urinary Catheter Time of Insertion: 01:00 Discharge Data Studies Completed and Pending Completed Studies During Hospitalization Category Date Time Status XR chest 1V portable [id number] Stat Exams 01/03/22 22:52 Completed US renal BI* [id number] Routine Ultrasound 01/04/22 03:02 Completed US venous duplex lower extremity bilat [CV venous Ultrasound 01/04/22 02:20 [place] [id number]] Stat Pending at discharge Category Date Time Status Blood Culture Routine Lab 01/04/22 04:10 Results Complete Blood Count w/Auto AM LABS Lab 01/05/22 04:00 Ordered Complete Blood Count w/Auto AM LABS Lab 01/06/22 04:00 Ordered Complete Blood Count w/Auto AM LABS Lab 01/07/22 04:00 Ordered Comprehensive Metabolic Panel AM LABS Lab 01/05/22 04:00 Ordered Comprehensive Metabolic Panel AM LABS Lab 01/06/22 04:00 Ordered Comprehensive Metabolic Panel AM LABS Lab 01/07/22 04:00 Ordered Magnesium AM LABS Lab 01/05/22 04:00 Ordered Magnesium AM LABS Lab 01/06/22 04:00 Ordered Magnesium AM LABS Lab 01/07/22 04:00 Ordered Phosphorus AM LABS Lab 01/05/22 04:00 Ordered Phosphorus AM LABS Lab 01/06/22 04:00 Ordered Phosphorus AM LABS Lab 01/07/22 04:00 Ordered Urine Culture Stat Lab 01/04/22 01:22 Received CV. echo complete* [id number] Stat Ultrasound 01/04/22 02:20 Taken Radiology Impressions Chest X-Ray 01/03/22 22:52 IMPRESSION: 1. Low lung volumes and mild bronchovascular crowding. 2. Mild cardiomegaly on portable view. Venous Duplex 01/04/22 02:20 IMPRESSION: No evidence of deep vein thrombosis. Renal Ultrasound 01/04/22 03:02 IMPRESSION: 1. No renal obstruction or mass. 2. Mild atrophy LEFT kidney. Laboratory Results WBC 8.3 10^3/uL (4.0-10.0) 01/03/22 22:57 RBC 5.02 10^6/uL (4.1-5.3) 01/03/22 22:57 Hgb 14.9 g/dL (11.7-16.6) 01/03/22 22:57 Hct 45.2 % (42.0-52.0) 01/03/22 22:57 MCV 90.0 fl (80-94) 01/03/22 22:57 MCH 29.7 pg (28.0-34.0) 01/03/22 22:57 MCHC 33.0 g/dL (30.0-36.0) 01/03/22 22:57 RDW 15.8 % (12.1-15.1) H 01/03/22 22:57 Plt Count 150 10^3/cmm (130-400) 01/03/22 22:57 MPV 13.3 fL (7.4-10.4) H 01/03/22 22:57 Neut % (Auto) 79.7 % 01/03/22 22:57 Lymph % (Auto) 13.7 % 01/03/22 22:57 Wayne % (Auto) 6.1 % 01/03/22 22:57 Eos % (Auto) 0.0 % 01/03/22 22:57 Baso % (Auto) 0.1 % 01/03/22 22:57 Neut # (Auto) 6.63 10^3/uL (1.8-7.7) 01/03/22 22:57 Lymph # (Auto) 1.1 10^3/uL (0.8-4.8) 01/03/22 22:57 Wayne # (Auto) 0.5 10^3/uL (0.2-0.9) 01/03/22 22:57 Eos # (Auto) 0.0 10^3/uL (0.0-0.8) 01/03/22 22:57 Baso # (Auto) 0.0 10^3/uL (0.0-0.1) 01/03/22 22:57 Nucleated RBC % (auto) 0.4 % 01/03/22 22:57 Nucleated RBCs # 0.0 /100WBC 01/03/22 22:57 ESR 3 mm/hr (0-10) 01/04/22 04:10 PT 19.90 SECONDS (12.1-14.9) H 01/04/22 04:10 INR 1.66 (0.8-1.2) H 01/04/22 04:10 D-Dimer 4.95 ug/mIFEU (0-0.59) H 01/04/22 04:10 Specimen Type Arterial 01/04/22 01:45 Sample Site Radial, left 01/04/22 01:45 ABG pH 7.35 (7.35-7.45) 01/04/22 01:45 ABG pCO2 15.0 mmHg (35-45) L* 01/04/22 01:45 ABG pO2 116.0 mmHg (80.0-100.0) H 01/04/22 01:45 ABG HCO3 8.2 mmol/L (22-26) L 01/04/22 01:45 ABG Base Excess -14.2 mmol/L (-2.0-2.0) L 01/04/22 01:45 Yuriy Test Pos 01/04/22 01:45 Hematocrit 47.2 % (42-52) 01/04/22 01:45 O2 Delivery Device Nc 01/04/22 01:45 O2 Liters/Min 4.0 % 01/04/22 01:45 Wet Finisher Wool ID Keith 01/04/22 01:45 Sodium 136 mmol/L (136-145) 01/03/22 22:57 Potassium 4.9 mmol/L (3.5-5.1) 01/03/22 22:57 Chloride 100 mmol/L (98-107) 01/03/22 22:57 Carbon Dioxide 18 mmol/L (22-29) L 01/03/22 22:57 Anion Gap 22.9 (5-19) H 01/03/22 22:57 BUN 55 mg/dL (8-23) H 01/03/22 22:57 Creatinine 1.6 mg/dL (0.7-1.2) H 01/03/22 22:57 GFR Calculation Not Reportable 01/03/22 22:57 Glucose 115 mg/dL (65-115) 01/03/22 22:57 Calculated Osmolality 298 mOsm/kg (285-295) H 01/03/22 22:57 Lactic Acid 3.6 mmol/L (0.5-2.2) H 01/03/22 22:57 Lactic Acid (Sepsis) 5.6 mmol/L (0.5-2.2) H* 01/04/22 04:10 Calcium 9.3 mg/dL (8.5-10.5) 01/03/22 22:57 Magnesium 2.2 mg/dL (1.7-2.3) 01/03/22 22:57 Total Bilirubin 1.4 mg/dL (0.15-1.2) H 01/03/22 22:57 AST 112 U/L (0-40) H 01/03/22 22:57 ALT 124 U/L (0-41) H 01/03/22 22:57 Alkaline Phosphatase 150 IU/L (40-130) H 01/03/22 22:57 Creatine Kinase 46 U/L (39-308) 01/04/22 04:10 Troponin T Baseline 183 ng/L (0-15) H* 01/03/22 22:57 Troponin T 120 Minute 204.0 ng/L (0-15) H 01/04/22 01:13 Delta Troponin T 21.0 ABS# (0-10) H* 01/04/22 01:13 Troponin T Hi Sens 6Hr 190.1 ng/L (0-15) H 01/04/22 04:10 Troponin T Hi Sens 6Hr Delta 7.1 ng/L (0-12) 01/04/22 04:10 C-Reactive Protein 5.9 mg/L (0.0-4.9) H 01/04/22 04:10 NT-Pro-B Natriuret Pep 55719 pg/mL (0-450) H 01/04/22 04:10 Total Protein 5.7 g/dL (6.6-8.7) L 01/03/22 22:57 Albumin 3.3 g/dL (3.5-5.2) L 01/03/22 22:57 Globulin 2.4 g/dL (1.3-4.6) 01/03/22 22:57 Procalcitonin 0.14 ng/mL (0-0.5) 01/04/22 04:10 TSH 3.95 uIU/mL (0.27-4.20) 01/03/22 22:57 Random Cortisol 64.95 ug/dL (2.47-19.5) H 01/04/22 04:10 Urine Color Latisha (Yellow) 01/04/22 01:22 Urine Appearance Cloudy (CLEAR) 01/04/22 01:22 Urine pH 6 (5-7) 01/04/22 01:22 Ur Specific [place] 1.030 (1.005-1.030) 01/04/22 01:22 Urine Protein Trace (Negative) 01/04/22 01:22 Urine Glucose (UA) Norm (Normal) 01/04/22 01:22 Urine Ketones Negative (Negative) 01/04/22 01:22 Urine Blood Trace (Negative) H 01/04/22 01:22 Urine Nitrate Negative (Negative) 01/04/22 01:22 Urine Bilirubin Neg (Negative) 01/04/22 01:22 Urine Urobilinogen 1 mg/dL (Negative) H 01/04/22 01:22 Ur Leukocyte Esterase 2+ (Negative) H 01/04/22 01:22 Urine RBC 0-4 /hpf (0-2) H 01/04/22 01:22 Urine WBC >100 /hpf (0-5) H 01/04/22 01:22 Ur Squamous Epith Cells 0-4 /hpf (0-5) H 01/04/22 01:22 Amorphous Sediment Not Reportable 01/04/22 01:22 Urine Bacteria Trace /hpf (NONE) 01/04/22 01:22 Vitals Last Vital Signs Temp 96.0 F L 01/04/22 07:53 Pulse 103 H 01/04/22 07:53 Resp 13 01/04/22 07:53 BP 126/78 01/04/22 07:53 Pulse Ox 95 01/04/22 07:53 O2 Del Method 01/04/22 07:53 O2 Flow Rate 2 01/04/22 03:40 Discharge Plan Discharge Patient Disposition: Hospice - Home Condition: Stable Prescriptions: Continued dorzolamide (PF) 2 % drops 1 drop ophthalmic (eye) BID latanoprost 0.005 % drops 1 drop ophthalmic (eye) BEDTIME metoprolol tartrate 25 mg tablet 25 mg PO BID megestrol 20 mg tablet 20 mg PO BID Discontinued Eliquis 5 mg tablet 5 mg PO BID diltiazem HCl 30 mg tablet 30 mg PO TID rosuvastatin 20 mg tablet 20 mg PO DAILY valacyclovir 1 gram tablet 1,000 mg PO TID Rx Instructions: rx filled 12/14/21 7d/s Discharge Orders: Discharge Order (Routine); Ordered 01/04/22 Ordered By: Neeraj Machado Referrals: [facility] [Outside] Aaliyah Edwards FNP [Primary Care Provider] - Discharge Diet: GI Soft Patient Instructions: Hospice Care, Comfort Measures (GEN) Discharge Attestations Time Spent in Discharge Care*: less than 30 min Quality Metrics Clinical Quality Measures [ No reported AMI, CVA or VTE this stay] Coding Level of Care Code Acute Chg FW DC note Diagnoses Cardiogenic shock R57.0 Septic shock A41.9; R65.21 Atrial fibrillation with rapid ventricular response I48.91 JW (acute kidney injury) N17.9 Acute UTI N39.0 Aspiration pneumonia J69.0 Severe sepsis A41.9; R65.20 NSTEMI (non-ST elevated myocardial infarction) I21.4 Acute exacerbation of CHF (congestive heart failure) I50.9
--- NOTE | 2022-01-04 13:04 | PC.NURSE ---
DISCHARGE PAPERWORK GONE OVER WITH PT AND HIS . ALL QUESTIONS ANSWERED. ARTERIAL LINE HAS BEEN REMOVED. PT TOLERATED WELL. IVS REMOVED. PT TOLERATED WELL. PTS LEAVING TO GO HOME AND GET EVERYTHING SET UP. [facility] HAS BEEN CALLED, JUST WAITING FOR AMBULANCE TO ARRIVE. WILL CONTINUE TO MONITOR PT.
--- NOTE | 2022-01-04 14:19 | PC.NURSE ---
AMBULANCE HERE TO TAKE PT HOME. PT SAFELY DISCHARGED. HOSPICE COMPANY CALLED AND NOTIFIED.
== END 2022-01-04 14:19 | disposition hospice, home (50) | DRG 871 ==
LOC: ER 01-04 01:56 → ICU 01-04 02:08
PROVIDERS: Admitting Provider Family Medicine; Emergency Provider Emergency Medicine; PCP Nurse Practitioner Family; Visit Provider Internal Medicine
DX: A41.9 Sepsis, unspecified organism (principal); I21.4 Non-ST elevation (NSTEMI) myocardial infarction; R65.21 Severe sepsis with septic shock; R57.0 Cardiogenic shock; I50.23 Acute on chronic systolic (congestive) heart failure; J69.0 Pneumonitis due to inhalation of food and vomit; N39.0 Urinary tract infection, site not specified; I69.954 Hemiplegia and hemiparesis following unspecified cerebrovascular disease affecting left non-dominant side; I13.0 Hypertensive heart and chronic kidney disease with heart failure and stage 1 through stage 4 chronic kidney disease, or unspecified chronic kidney disease; I42.9 Cardiomyopathy, unspecified; N17.9 Acute kidney failure, unspecified; I48.91 Unspecified atrial fibrillation; N18.9 Chronic kidney disease, unspecified; E78.5 Hyperlipidemia, unspecified; I95.9 Hypotension, unspecified; Z66 Do not resuscitate
CPT/HCPCS: 36600; 51702; 71045; 76770; 80053; 81001; 82533; 82550; 82803; 83605; 83735; 83880; 84145; 84443; 84484; 85025; 85378; 85610; 85651; 86140; 87040; 87086; 93005; 93306; 93970; 94664; 96365; 96366; 96367; 96372; 96375; 99204; 99291; C9113; J0282; J0692; J0743; J1160; J1650; J1940; J2370; J3370; J3490; J7050; J7060